=== PATIENT | female | born 1985 ===

== ENCOUNTER 2021-03-09 12:30 | Inpatient (IN) | payer OTHER ==
[~2021-03-09] VITALS: Ht 160 cm; Wt 78.0 kg
[2021-03-13] MEDS ORDERED: PRENATAL CAPLE1 EAC1 PO (08:39)
[2021-03-15] MEDS ORDERED: IBU800 MG PO ×3 (11:44→11:48)
== END 2021-03-15 12:54 | disposition home or self-care (01) | DRG 798 ==
LOC: OB/GYN 03-12 12:30 → LDR 03-13 07:51 → OB/GYN 03-13 16:00
PROVIDERS: ADMIT Obstetrics & Gynecology; ATTEND Obstetrics & Gynecology
PROC: 10E0XZZ Delivery of Products of Conception, External Approach (ICD-10-PCS; principal; 2021-03-13)
PROC: 10907ZC Drainage of Amniotic Fluid, Therapeutic from Products of Conception, Via Natural or Artificial Opening (ICD-10-PCS; 2021-03-13)
PROC: 3E033VJ Introduction of Other Hormone into Peripheral Vein, Percutaneous Approach (ICD-10-PCS; 2021-03-13)
PROC: 4A1HXFZ Monitoring of Products of Conception, Cardiac Rhythm, External Approach (ICD-10-PCS; 2021-03-13)
PROC: 0UB70ZZ Excision of Bilateral Fallopian Tubes, Open Approach (ICD-10-PCS; 2021-03-14)
DX: O80 Encounter for full-term uncomplicated delivery (principal); Z37.0 Single live birth; Z30.2 Encounter for sterilization; Z3A.38 38 weeks gestation of pregnancy

== ENCOUNTER 2021-03-13 01:09 | Outpatient (CLI) | payer OTHER ==
[2021-03-13] MEDS ORDERED: PRENATAL CAPLE1 EAC1 PO (08:39)
== END 2021-03-13 08:28 | disposition still patient (30) ==
LOC: OBS/DEL 01:09
PROVIDERS: ATTEND Obstetrics & Gynecology
DX: O47.1 False labor at or after 37 completed weeks of gestation (principal); Z3A.38 38 weeks gestation of pregnancy